=== PATIENT | female | born 1965 | race Caucasian/White ===

== ENCOUNTER 2018-08-01 18:30 | Inpatient (IN) | payer SELFPAY ==
[~2018-08-01] VITALS: Ht 162.6 cm; Wt 59.9 kg
[2018-08-01 18:35] VITALS: BP 139/81
--- NOTE | 2018-08-01 18:56 | NUR ---
Pt present to ed due to lt sided substernal cp x last noc;Pt states pain radiates to her jaw , lt arm and back;Denies n/v. Denies SOB. Pain is aggravated by lying down. Hx of HTN and DM. AAO x 4; All monitors in placed;Safety measures instituted;Needs attended. Er Md will be notified.
[2018-08-01] MEDS ORDERED: ASPIRIN 325 MG TAB PO ONE (19:15)
[2018-08-01] MEDS ORDERED: NITROGLYCERIN 0.4 MG TAB SL ONE (19:15)
--- NOTE | 2018-08-01 19:15 | NUR ---
RECEIVED REPORT FROM AM NURSE. PT LAYING IN BED, DAUGHTER AT BEDSIDE. REPORTS INTERMITTENT CP 09/06. ALL NEEDS MET AT THIS TIME.
[2018-08-01 19:36] LABS: BASOPHILS # (AUTO) 0.1 K/uL (0.00-0.22); BASOPHILS % (AUTO) 0.5 % (0.0-2.0); EOSINOPHILS # (AUTO) 0.7 K/uL (0-0.4); EOSINOPHILS % (AUTO) 5.9 % (0.0-4.0); HEMATOCRIT 36.3 % (36-48); HEMOGLOBIN 11.5 g/dL (12.0-16.0); LYMPHOCYTES # (AUTO) 2.5 K/uL (2.5-16.5); LYMPHOCYTES % (AUTO) 20.3 % (20.5-51.1); MEAN CORPUSCULAR HEMOGLOBIN 25 pg (27-31); MEAN CORPUSCULAR HGB CONC 32 g/dL (33-37); MEAN CORPUSCULAR VOLUME 77.4 fL (80-94); MONOCYTES # (AUTO) 0.7 K/uL (0.8-1.0); MONOCYTES % (AUTO) 5.6 % (1.7-9.3); NEUTROPHILS # (AUTO) 8.3 K/uL (1.8-7.7); NEUTROPHILS % (AUTO) 67.7 % (42.2-75.2); PLATELET COUNT (AUTO) 404 K/uL (140-450); RED BLOOD CELL COUNT(AUTO) 4.68 MIL/uL (4.20-5.40); RED CELL DISTRIBUTION WIDTH 13.3 % (11.6-13.7); WHITE BLOOD COUNT (AUTO) 12.3 K/uL (4.8-10.8)
[2018-08-01 19:43] LABS: ANION GAP 14.4 (8-16); CARBON DIOXIDE 29.9 mmol/L (21-32); CREATININE 0.9 mg/dL (0.6-1.3); POTASSIUM 4.3 mmol/L (3.5-5.1)
[2018-08-01 19:48] LABS: ALBUMIN 4.4 g/dL (3.4-5.0); TOTAL BILIRUBIN 0.4 mg/dL (0.0-1.0)
[2018-08-01 20:10] LABS: CREATINE KINASE MB 0.3 ng/mL (0-3.6)
--- NOTE | 2018-08-01 20:15 | NUR ---
PT LAYING IN BED, DAUGHTER AT BEDSIDE. PT REPORTS NO CHEST PAIN AT THIS TIME. RR EVEN AND UNLABORED. ALL NEEDS MET.
--- NOTE | 2018-08-01 20:16 | NUR ---
ER MD AT BEDSIDE TO SPEAK WITH PT, PT'S DAUGHTER, AND DAUGHTER'S THROUGH PHONE
--- NOTE | 2018-08-01 20:40 | NUR ---
Patient will be admitted to care of DR. LAY. Admited to TELE. Will go to room 120B. Belongings list completed. Report to MER IRENE
--- NOTE | 2018-08-01 20:50 | NUR ---
ADMITTED A 53 F FROM ER .CAME BY KRISTIAN. AWAKE,ALERT AND ORIENTED X4. ON TELE -SR. SPEAKS CHURCH. BUT DAUGHTER WITH PATIENTS TO HELP TRANSLATE FOR MOM. PT IS AMBULATORY. WITH SKIN INTACT. CAME WITH CHEST PAIN BUT AT THIS TIME DENIES ANY DISCOMFORT/PAIN . HAS HL ON THE RT AC#20. CLEAR AND PATENT. ,RESIDENT MD CAME WITH PT FROM ER. PLAN OF CARE DISCUSSED WITH PT/DAUGHTER. VERBALIZED UNDERSTANDING. ORIENTED TO HOSPITAL ROUTINES. BED PLACE IN LOWEST POSITION. CALL LIGHT WITHIN EASY REACH. INSTRUCTED THE USE OF PHONE. WILL FOLLOW UP ADMIT ORDERS AND WILL CONTINUE TO MONITOR.
[2018-08-01] MEDS ORDERED: HYDROcodone/APAP 7.5/325 MG 1 TAB PO PRN (20:55)
[2018-08-01] MEDS ORDERED: DEXTROSE 50% 50 ML SYR IVP PRN (20:55)
[2018-08-01] MEDS ORDERED: ACETAMINOPHEN 325 MG TAB PO PRN (20:55)
[2018-08-01] MEDS ORDERED: ONDANSETRON 4 MG/2 ML VIAL IVP PRN (20:55)
[2018-08-01 20:59] VITALS: BP 155/93
[2018-08-01] MEDS ORDERED: METF500T PO (21:37)
[2018-08-01 21:45] LABS: APPEARANCE,URINE CLEAR (CLEAR); BILIRUBIN,URINE NEGATIVE (NEGATIVE); BLOOD, URINE NEGATIVE (NEGATIVE); LEUKOCYTE ESTERASE ,URINE NEGATIVE (NEGATIVE); NITRITE, URINE NEGATIVE (NEGATIVE); PH,URINE 7.5 (5.0-9.0); UGLUCOSE NEGATIVE (NEGATIVE)
[2018-08-01 21:46] LABS: COLOR,URINE STRAW (YELLOW)
[2018-08-01 21:51] LABS: BARBITURATE, URINE NEG. ng/ml (NEG <=200); BENZODIAZEPINE, URINE NEG. ng/mL (NEG <=200); CANNABINOID, URINE NEG. ng/mL (NEG <=50); COCAINE, URINE NEG. ng/mL (NEG <=300); OPIATE, URINE NEG. ng/mL (NEG <=2000); PHENCYCLIDINE SCREEN,URINE NEG. ng/mL (NEG <=25)
[2018-08-01] MEDS: NACL 0.9% 1,000 ML IV SCH (21:54)
[2018-08-01] MEDS: BLOOD GLUCOSE MONITORING 1 DEV DEV FS SCH (21:55)
[2018-08-01] MEDS ORDERED: DOCUSATE SODIUM 100 MG GELCAP PO SCH (22:00)
[2018-08-01] MEDS ORDERED: METOPROLOL 25 MG TAB PO SCH (22:00)
[2018-08-01] MEDS: INSULIN LISPRO SLIDING SCALE 100 UNITS/ML VIAL SUBQ PRN (22:01)
--- NOTE | 2018-08-01 22:01 | NUR ---
BLOOD SUGAR WAS CHECKED RESULT 203. INSULIN COVERAGE GIVEN ORDERED. PT IS EATING FOOD FROM HOME.
[2018-08-01 22:03] LABS: MAGNESIUM 2.3 mg/dL (1.8-2.4); PHOSPHORUS 4.6 mg/dL (2.5-4.9); THYROID STIMULATING HORMONE 6.17 uIU/mL (0.34-3.74)
[2018-08-01] MEDS ORDERED: INFLUENZA VIRUS VACCINE QUAD 0.5 ML SYR IMVAC PRN (22:45)
[2018-08-01] MEDS ORDERED: PNEUMOCOCCAL VACCINE 23 MCG/0.5 ML VIAL IMVAC SCH (22:45)
--- NOTE | 2018-08-01 23:00 | NUR ---
SCD MACHINE APPLIED TO BOTH LOWER LEGS. MADE AWARE OF THE BENEFITS FROM THE MACHINE.
[2018-08-02 00:30] VITALS: BP 120/63
--- NOTE | 2018-08-02 00:50 | NUR ---
ASSISTED UP TO THE BATHROOM. AMBULATE WELL WITH NO PROBLEM.
--- NOTE | 2018-08-02 02:30 | NUR ---
PT STILL AWAKE, FEELING COLD . PROVIDED WITH SOME WARM BLANKETS.
[2018-08-02 04:02] VITALS: BP 111/73
--- NOTE | 2018-08-02 04:30 | NUR ---
PT IS ASLEEP. NO S/S OF DISCOMFORT NOTED.
[2018-08-02] MEDS: BLOOD GLUCOSE MONITORING 1 DEV DEV FS SCH ×4 (06:05→20:29)
[2018-08-02] MEDS: INSULIN LISPRO SLIDING SCALE 100 UNITS/ML VIAL SUBQ PRN ×4 (06:07→20:36)
--- NOTE | 2018-08-02 06:07 | NUR ---
BLOOD SUGAR THIS AM 153. PT GIVEN 2 UNITS HUMALOG SUB Q COVERAGE . PROVIDED SOME CRACKERS.
--- NOTE | 2018-08-02 06:16 | NUR ---
PATIENT HAS BEEN SCREENED AND CATEGORIZED MODERATE NUTRITION RISK. PATIENT WILL BE SEEN WITHIN 3-5 DAYS OF ADMISSION. 08/03/18-08/05/18 TASHIA LANDA MS, RDN
[2018-08-02 06:54] LABS: BASOPHILS % (AUTO) 0.3 % (0.0-2.0); EOSINOPHILS # (AUTO) 0.7 K/uL (0-0.4); EOSINOPHILS % (AUTO) 6.3 % (0.0-4.0); HEMATOCRIT 34.3 % (36-48); HEMOGLOBIN 10.8 g/dL (12.0-16.0); LYMPHOCYTES # (AUTO) 2.8 K/uL (2.5-16.5); LYMPHOCYTES % (AUTO) 24.9 % (20.5-51.1); MEAN CORPUSCULAR HEMOGLOBIN 25 pg (27-31); MEAN CORPUSCULAR HGB CONC 32 g/dL (33-37); MEAN CORPUSCULAR VOLUME 77.7 fL (80-94); MONOCYTES # (AUTO) 0.7 K/uL (0.8-1.0); MONOCYTES % (AUTO) 6.2 % (1.7-9.3); NEUTROPHILS # (AUTO) 7.1 K/uL (1.8-7.7); NEUTROPHILS % (AUTO) 62.3 % (42.2-75.2); PLATELET COUNT (AUTO) 389 K/uL (140-450); RED BLOOD CELL COUNT(AUTO) 4.42 MIL/uL (4.20-5.40); RED CELL DISTRIBUTION WIDTH 13.7 % (11.6-13.7); WHITE BLOOD COUNT (AUTO) 11.4 K/uL (4.8-10.8)
--- NOTE | 2018-08-02 07:25 | NUR ---
ENDORSED PT IN STABLE CONDITION TO AM NURSE.
--- NOTE | 2018-08-02 07:25 | NUR ---
RECEIVED REPORT FROM PRESS WORKER HELPER RN. PT IS AWAKE, ALERT AND ORIENTED X4. ON TELE -SR. SPEAKS YARSANI BUT DAUGHTER IS WITH PATIENT TO HELP TRANSLATE. PT IS AMBULATORY. WITH SKIN INTACT. CAME WITH CHEST PAIN BUT AT THIS TIME DENIES ANY DISCOMFORT/PAIN . HAS HL ON THE RT AC#20. CLEAR AND PATENT. PLAN OF CARE DISCUSSED WITH PT/DAUGHTER. VERBALIZED UNDERSTANDING. ORIENTED TO HOSPITAL ROUTINES. BED PLACE IN LOWEST POSITION. CALL LIGHT WITHIN EASY REACH. INSTRUCTED THE USE OF PHONE. WILL FOLLOW UP ADMIT ORDERS AND WILL CONTINUE TO MONITOR.
[2018-08-02 07:30] LABS: ANION GAP 10.6 (8-16); CARBON DIOXIDE 31.3 mmol/L (21-32); CREATININE 0.7 mg/dL (0.6-1.3); POTASSIUM 3.9 mmol/L (3.5-5.1)
[2018-08-02 07:31] LABS: CHOL/HDL RATIO 4.4 (1-4.5); MAGNESIUM 2.1 mg/dL (1.8-2.4); PHOSPHORUS 4.6 mg/dL (2.5-4.9)
[2018-08-02 08:00] VITALS: BP 114/73
[2018-08-02] MEDS ORDERED: metFORMIN 500 MG TAB PO SCH (08:00)
[2018-08-02] MEDS: DOCUSATE SODIUM 100 MG GELCAP PO SCH ×2 (08:48→20:31)
[2018-08-02] MEDS: LISINOPRIL 5 MG TAB PO SCH (08:48)
[2018-08-02] MEDS: METOPROLOL 25 MG TAB PO SCH ×2 (08:48→20:31)
[2018-08-02] MEDS: FAMOTIDINE 20 MG TAB PO SCH (08:49)
[2018-08-02] MEDS: ATORVASTATIN 20 MG TAB PO SCH (08:49)
[2018-08-02] MEDS ORDERED: ECOTRIN 81 MG TABEC PO SCH (09:00)
[2018-08-02] MEDS ORDERED: FERROUS SULFATE 325 MG TABEC PO SCH (09:22)
--- NOTE | 2018-08-02 09:50 | NUR ---
PT RESTING IN BED TALKING TO DAUGHTER. PT AWAITING CONSULT WITH DR. CUMMINGS FOR CLEARANCE AND DC. WILL NOTIFY PT OF DR. LANCE
[2018-08-02 12:00] VITALS: BP 113/72
--- NOTE | 2018-08-02 12:03 | NUR ---
PT IS ASLEEP. NO S/S OF DISCOMFORT NOTED. WILL ROUND FREQUENTLY. CALL LIGHT WITHIN REACH. BED IN LOW POSITION.
--- NOTE | 2018-08-02 14:26 | NUR ---
PT IS AMBULATING HALLS WITH DAUGHTER. PT TOLERATING WELL. NO SIGNS OF DISTRESS OR SOB NOTED. NO COMPLAINT OF CHEST PAIN. WILL ROUND FREQUENTLY.
[2018-08-02 16:00] VITALS: BP 116/70
[2018-08-02] MEDS ORDERED: CLOP75TA26 PO ×2 (16:49→17:08)
[2018-08-02] MEDS ORDERED: AMLO5TAB PO (16:49)
[2018-08-02] MEDS ORDERED: METF500T PO ×2 (16:53→17:08)
[2018-08-02] MEDS ORDERED: TELM80TA1 PO ×2 (16:55→17:08)
[2018-08-02] MEDS ORDERED: CHLO25TA33 PO ×2 (16:58→17:08)
[2018-08-02] MEDS: NACL 0.9% 1,000 ML IV SCH (17:43)
--- NOTE | 2018-08-02 19:11 | NUR ---
RECEIVED REPORT FROM DAY SHIFT FROM DAY SHIFT NURSE, JER AT PT BEDSIDE. PT DAUGHTER IS AT BEDSIDE. PT IS AA0X4. PT IS ON RA WITH RESPIRATIONS EVEN AND UNLABORED. IV ACCESS IN R AC 20G WITH IVF RUNNING PER MD ORDERS. IV IS PATENT AND INTACT. PT SKIN IS INTACT. PT HAS NO C/O PAIN AT THIS TIME. BED IS LOCKED, LOW POSITION WITH SIDE RAILS UP X2. CALL LIGHT IS WITHIN REACH. BOARD UPDATED. WILL CONTINUE TO MONITOR.
--- NOTE | 2018-08-02 19:56 | NUR ---
ENDORSED PT TO [facility] ASS[facility] SPECIALIST YOLANDA CONTINUITY OF CARE. PT IN STABLE CONDITION.
[2018-08-02 20:00] VITALS: BP 109/68
--- NOTE | 2018-08-02 20:36 | NUR ---
SCHEDULED MEDICATIONS ADMINISTERED. INSULIN COVERAGE GIVEN FOR BS, 318 PER MD ORDERS. PT TOLERATED WELL. ALL OTHER NEEDS ARE MET AT THIS TIME. NO SIGNS OR SYMPTOMS OF DISTRESS. WILL CONTINUE TO MONITOR.
--- NOTE | 2018-08-02 23:02 | NUR ---
PT ASLEEP IN BED. PT HAS NO S/S OF DISTRESS. WILL CONTINUE TO MONITOR.
[2018-08-03] VITALS: BP 93/55
--- NOTE | 2018-08-03 02:06 | NUR ---
NO CHANGE IN CONDITION. PT HAS NO S/S OF DISTRESS. WILL CONTINUE TO MONITOR.
[2018-08-03 04:00] VITALS: BP 108/68
[2018-08-03] MEDS: BLOOD GLUCOSE MONITORING 1 DEV DEV FS SCH ×2 (05:09→12:14)
[2018-08-03] MEDS: INSULIN LISPRO SLIDING SCALE 100 UNITS/ML VIAL SUBQ PRN (05:51)
--- NOTE | 2018-08-03 05:52 | NUR ---
INSULIN COVERAGE GIVEN FOR BS 153 PER MD ORDERS. PT TOLERATED WELL. NO S/S OF DISTRESS. WILL CONTINUE TO MONITOR.
[2018-08-03 07:13] LABS: BASOPHILS % (AUTO) 0.5 % (0.0-2.0); EOSINOPHILS # (AUTO) 0.6 K/uL (0-0.4); EOSINOPHILS % (AUTO) 5.6 % (0.0-4.0); HEMATOCRIT 32.1 % (36-48); LYMPHOCYTES # (AUTO) 3.3 K/uL (2.5-16.5); LYMPHOCYTES % (AUTO) 31.2 % (20.5-51.1); MEAN CORPUSCULAR HEMOGLOBIN 25 pg (27-31); MEAN CORPUSCULAR HGB CONC 31 g/dL (33-37); MEAN CORPUSCULAR VOLUME 78.7 fL (80-94); MONOCYTES # (AUTO) 0.7 K/uL (0.8-1.0); MONOCYTES % (AUTO) 6.5 % (1.7-9.3); NEUTROPHILS % (AUTO) 56.2 % (42.2-75.2); PLATELET COUNT (AUTO) 324 K/uL (140-450); RED BLOOD CELL COUNT(AUTO) 4.09 MIL/uL (4.20-5.40); RED CELL DISTRIBUTION WIDTH 13.3 % (11.6-13.7); WHITE BLOOD COUNT (AUTO) 10.7 K/uL (4.8-10.8)
--- NOTE | 2018-08-03 07:13 | NUR ---
ENDORSED PT TO DAY SHIFT NURSE FOR CONTINUITY OF CARE. PT IN STABLE CONDITION.
--- NOTE | 2018-08-03 07:14 | NUR ---
Received report from pm nurse Kimberley. Pt awake, respirations even & nonlabored in room air, FLACC 0. Daughter at bedside. Call light within reach.
[2018-08-03 07:31] LABS: ANION GAP 10.8 (8-16); CARBON DIOXIDE 29.4 mmol/L (21-32); CREATININE 0.8 mg/dL (0.6-1.3); POTASSIUM 4.2 mmol/L (3.5-5.1)
[2018-08-03 08:00] VITALS: BP 126/73
[2018-08-03] MEDS: metFORMIN 500 MG TAB PO SCH ×2 (08:39→12:25)
[2018-08-03] MEDS: DOCUSATE SODIUM 100 MG GELCAP PO SCH (08:39)
[2018-08-03] MEDS: LISINOPRIL 5 MG TAB PO SCH (08:39)
[2018-08-03] MEDS: ATORVASTATIN 20 MG TAB PO SCH (08:39)
[2018-08-03] MEDS: FAMOTIDINE 20 MG TAB PO SCH (08:40)
[2018-08-03] MEDS: METOPROLOL 25 MG TAB PO SCH (08:40)
[2018-08-03] MEDS ORDERED: FERROUS SULFATE 325 MG TABEC PO SCH (09:00)
[2018-08-03] MEDS ORDERED: metFORMIN 500 MG TAB PO SCH (09:00)
[2018-08-03 09:06] LABS: TRANSFERRIN 267 mg/dL (200-370)
--- NOTE | 2018-08-03 11:10 | NUR ---
Pt pacing in room, daughter at bedside. Pt denies any discomfort, respirations even & nonlabored in room air, FLACC 0.
[2018-08-03 12:00] VITALS: BP 145/85
--- NOTE | 2018-08-03 12:06 | NUR ---
CM NOTE RECEIVED CALL FROM DR. Branden CUMMINGS REQUESTING ASSISTANCE WITH PATIENT'S INSURANCE COVERAGE. CURRENTLY PATIENT IS A SELF PAY AND IS HERE VISITING FROM [facility]. INFORMED ADMITTING DEPT REGARDING DR. CUMMINGS'S REQUEST. DIRECTOR OF ADMITTING DEPT SALTY SPOKE WITH PATIENT AND PATIENT'S DAUGHTER AND SON IN LAW. PER SALTY, PATIENT STATED THAT SHE WANTS TO GO BACK TO [facility] AND SEEK MEDICAL CARE THERE AND THAT HER DAUGHTER AND SON IN LAW ARE BOOKING HER A FLIGHT BACK TO [facility] FOR TOMORROW. SALTY ALSO STATED THAT PATIENT'S SON IN LAW IS CALLING DR. CUMMINGS TODAY TO INFORM HIM OF PATIENT'S CHOICE TO GO BACK HOME TO [facility] AND SEEK MEDICAL CARE THERE. DR. BABIN/JAYY MADE AWARE.
[2018-08-03] MEDS ORDERED: GLIM1TAB6 PO (12:20)
[2018-08-03] MEDS ORDERED: [UNRECOGNIZED DRUG - OTHER] PO (12:23)
[2018-08-03] MEDS ORDERED: [UNRECOGNIZED DRUG - OTHER] (12:23)
[2018-08-03] MEDS ORDERED: METO25TA PO (12:26)
[2018-08-03] MEDS ORDERED: ATOR20TA40 PO (12:26)
[2018-08-03] MEDS ORDERED: CLOP75TA26 PO (12:26)
[2018-08-03] MEDS ORDERED: AMLO5TAB4 PO (12:26)
[2018-08-03] MEDS ORDERED: ASPI-1440 PO (12:27)
[2018-08-03] MEDS ORDERED: LISI5TAB18 PO (13:19)
[2018-08-03] MEDS ORDERED: FERR325E14 PO (13:32)
[2018-08-03] MEDS ORDERED: ASCO500T45 PO (14:07)
--- NOTE | 2018-08-03 15:00 | NUR ---
Written & verbal discharge instructions provided to pt, daughter Daytonjulienkeo at bedside to translate to [employer]. Both verbalized understanding of & agree with discharge plans. Discharge paper signed by daughter per pt request.
--- NOTE | 2018-08-03 15:30 | NUR ---
Pt discharged at this time to home. All belongings with pt. Name band removed. Pt stable, [id number], no c/o discomfort upon departure. Amb off unit with steady gait, accompanied by daughter Cynthia.
[2018-08-03] MEDS ORDERED: amLODIPine 5 MG TAB PO SCH (17:00)
[2018-08-03] MEDS ORDERED: CLOPIDOGREL 75 MG TAB PO SCH (17:00)
[2018-08-04 06:16] LABS: FERRITIN 33 ng/mL (15-150); FOLIC ACID > 20.00 ng/mL (>3.0)
== END 2018-08-03 15:30 | disposition home or self-care (01) | DRG 311 ==
LOC: MED 18:30 → MTU 20:29
PROVIDERS: ADMIT General Practice; ATTEND General Practice
DX: I24.9 Acute ischemic heart disease, unspecified (principal); I10 Essential (primary) hypertension; D50.9 Iron deficiency anemia, unspecified; D72.829 Elevated white blood cell count, unspecified; E78.5 Hyperlipidemia, unspecified; I25.10 Atherosclerotic heart disease of native coronary artery without angina pectoris; E11.65 Type 2 diabetes mellitus with hyperglycemia; E02 Subclinical iodine-deficiency hypothyroidism; Z79.84 Long term (current) use of oral hypoglycemic drugs; Z90.710 Acquired absence of both cervix and uterus
CPT/HCPCS: 36415; 71045; 80048; 80053; 80305; 81003; 82550; 82553; 82607; 82728; 82746; 82948; 83036; 83540; 83690; 83735; 83880; 84100; 84443; 84484; 85025; 85045; 85610; 85730; 87081; 90658; 90732; 93005; 93017; 99285; J1815; J7030; Q0092

== ENCOUNTER 2018-08-11 14:30 | Inpatient (IN) | payer SELFPAY ==
[~2018-08-11] VITALS: Ht 160 cm; Wt 59.4 kg
[~2018-08-11 14:30] MED LIST: AMLO5TAB4 PO; ASCO500T45 PO; ASPI-1440 PO; ATOR20TA40 PO; CLOP75TA26 PO; FERR325E14 PO; GLIM1TAB6 PO; LISI5TAB18 PO; METF500T PO; METO25TA PO; [UNRECOGNIZED DRUG - OTHER] PO
[2018-08-11 14:31] VITALS: BP 148/93
[2018-08-11] MEDS ORDERED: KETOROLAC 30 MG/ML VIAL IVP ONE (14:50)
[2018-08-11] MEDS ORDERED: LORazepam 2 MG/ML VIAL IVP ONE (14:50)
[2018-08-11 15:11] LABS: BASOPHILS % (AUTO) 0.3 % (0.0-2.0); EOSINOPHILS # (AUTO) 0.1 K/uL (0-0.4); EOSINOPHILS % (AUTO) 0.6 % (0.0-4.0); HEMATOCRIT 34.1 % (36-48); LYMPHOCYTES # (AUTO) 2.1 K/uL (2.5-16.5); LYMPHOCYTES % (AUTO) 13.4 % (20.5-51.1); MEAN CORPUSCULAR HEMOGLOBIN 24 pg (27-31); MEAN CORPUSCULAR HGB CONC 32 g/dL (33-37); MONOCYTES # (AUTO) 0.7 K/uL (0.8-1.0); MONOCYTES % (AUTO) 4.4 % (1.7-9.3); NEUTROPHILS # (AUTO) 12.5 K/uL (1.8-7.7); NEUTROPHILS % (AUTO) 81.3 % (42.2-75.2); PLATELET COUNT (AUTO) 412 K/uL (140-450); RED BLOOD CELL COUNT(AUTO) 4.54 MIL/uL (4.20-5.40); RED CELL DISTRIBUTION WIDTH 13.3 % (11.6-13.7); WHITE BLOOD COUNT (AUTO) 15.4 K/uL (4.8-10.8)
[2018-08-11 15:24] LABS: ALBUMIN 4.3 g/dL (3.4-5.0); ANION GAP 15.4 (8-16); CARBON DIOXIDE 26.1 mmol/L (21-32); CREATININE 0.7 mg/dL (0.6-1.3); POTASSIUM 3.5 mmol/L (3.5-5.1); TOTAL BILIRUBIN 0.7 mg/dL (0.0-1.0)
[2018-08-11 15:25] LABS: PROTHROMBIN TIME 10.8 secs (10.8-13.4)
[2018-08-11] MEDS ORDERED: HYDROcodone/APAP 7.5/325 MG 1 TAB PO PRN (15:40)
[2018-08-11] MEDS ORDERED: ACETAMINOPHEN 325 MG TAB PO PRN (15:40)
[2018-08-11] MEDS ORDERED: ONDANSETRON 4 MG/2 ML VIAL IVP PRN (15:40)
[2018-08-11] MEDS ORDERED: NACL 0.9% 500 ML IV ONE (15:50)
[2018-08-11] MEDS: NACL 0.9% 1,000 ML IV SCH (15:50)
[2018-08-11] MEDS ORDERED: DEXTROSE 50% 50 ML SYR IVP PRN (16:35)
[2018-08-11] MEDS ORDERED: INSULIN LISPRO SLIDING SCALE 100 UNITS/ML VIAL SUBQ PRN (16:35)
[2018-08-11] MEDS ORDERED: SODIUM CHLORIDE 1 GM TAB PO SCH (17:00)
[2018-08-11] MEDS ORDERED: DICYCLOMINE HCL LIQUID 10 MG/5 ML UDC PO SCH (17:30)
[2018-08-11] MEDS ORDERED: metFORMIN 500 MG TAB PO SCH ×2 (17:30→17:45)
[2018-08-11] MEDS ORDERED: LIDOCAINE VISCOUS 2% 20 ML UDC PO SCH (17:30)
[2018-08-11] MEDS ORDERED: ALUMINUM HYD/MAG/SIMETHICONE 30 ML UDC PO SCH (17:30)
[2018-08-11] MEDS: amLODIPine 5 MG TAB PO SCH (17:53)
[2018-08-11] MEDS ORDERED: PANTOPRAZOLE 40 MG TABEC PO SCH (19:30)
[2018-08-11 20:00] VITALS: BP 129/72
[2018-08-11 20:58] LABS: CARBON DIOXIDE 28.6 mmol/L (21-32); CREATININE 0.6 mg/dL (0.6-1.3); POTASSIUM 3.6 mmol/L (3.5-5.1)
[2018-08-11] MEDS: DOCUSATE SODIUM 100 MG GELCAP PO SCH (20:58)
[2018-08-11] MEDS: METOPROLOL 25 MG TAB PO SCH (20:59)
[2018-08-11] MEDS: BLOOD GLUCOSE MONITORING 1 DEV DEV FS SCH (21:00)
[2018-08-11 22:07] LABS: BARBITURATE, URINE NEG. ng/ml (NEG <=200); BENZODIAZEPINE, URINE NEG. ng/mL (NEG <=200); CANNABINOID, URINE NEG. ng/mL (NEG <=50); COCAINE, URINE NEG. ng/mL (NEG <=300); OPIATE, URINE NEG. ng/mL (NEG <=2000); PHENCYCLIDINE SCREEN,URINE NEG. ng/mL (NEG <=25)
[2018-08-11 22:09] LABS: APPEARANCE,URINE CLEAR (CLEAR); BILIRUBIN,URINE NEGATIVE (NEGATIVE); BLOOD, URINE NEGATIVE (NEGATIVE); COLOR,URINE STRAW (YELLOW); LEUKOCYTE ESTERASE ,URINE 1+ (NEGATIVE); NITRITE, URINE NEGATIVE (NEGATIVE); PH,URINE 6.5 (5.0-9.0); UGLUCOSE TRACE (NEGATIVE)
[2018-08-11 22:19] LABS: FREE T4 (FREE THYROXINE) 1.42 ng/dL (0.76-1.46); MAGNESIUM 1.7 mg/dL (1.8-2.4); PHOSPHORUS 3.6 mg/dL (2.5-4.9); THYROID STIMULATING HORMONE 3.78 uIU/mL (0.34-3.74)
[2018-08-11 22:41] LABS: RBC,URINE 0-5 (RARE) /HPF (0-5)
[2018-08-12] VITALS: BP 130/73
[2018-08-12 00:43] LABS: ANION GAP 11.9 (8-16); CARBON DIOXIDE 26.9 mmol/L (21-32); CREATININE 0.6 mg/dL (0.6-1.3); POTASSIUM 3.8 mmol/L (3.5-5.1)
[2018-08-12] MEDS: guaiFENesin 20 MG/ML UDC PO PRN ×3 (01:11→12:39)
[2018-08-12 04:00] VITALS: BP 90/60
[2018-08-12 05:44] LABS: BASOPHILS % (AUTO) 0.2 % (0.0-2.0); EOSINOPHILS # (AUTO) 0.3 K/uL (0-0.4); HEMATOCRIT 29.6 % (36-48); HEMOGLOBIN 9.6 g/dL (12.0-16.0); LYMPHOCYTES # (AUTO) 3.4 K/uL (2.5-16.5); LYMPHOCYTES % (AUTO) 26.1 % (20.5-51.1); MEAN CORPUSCULAR HEMOGLOBIN 25 pg (27-31); MEAN CORPUSCULAR HGB CONC 33 g/dL (33-37); MEAN CORPUSCULAR VOLUME 75.8 fL (80-94); MONOCYTES # (AUTO) 0.8 K/uL (0.8-1.0); MONOCYTES % (AUTO) 6.2 % (1.7-9.3); NEUTROPHILS # (AUTO) 8.5 K/uL (1.8-7.7); NEUTROPHILS % (AUTO) 65.5 % (42.2-75.2); PLATELET COUNT (AUTO) 340 K/uL (140-450); RED CELL DISTRIBUTION WIDTH 13.3 % (11.6-13.7)
[2018-08-12 06:29] LABS: ANION GAP 11.2 (8-16); CARBON DIOXIDE 27.4 mmol/L (21-32); CREATININE 0.7 mg/dL (0.6-1.3); POTASSIUM 3.6 mmol/L (3.5-5.1)
[2018-08-12] MEDS ORDERED: PANTOPRAZOLE 40 MG TABEC PO SCH (06:30)
[2018-08-12 06:35] LABS: CHOL/HDL RATIO 1.9 (1-4.5)
[2018-08-12 06:36] LABS: MAGNESIUM 1.8 mg/dL (1.8-2.4); PHOSPHORUS 3.9 mg/dL (2.5-4.9)
[2018-08-12] MEDS: NACL 0.9% 1,000 ML IV SCH (06:39)
[2018-08-12] MEDS: BLOOD GLUCOSE MONITORING 1 DEV DEV FS SCH ×3 (07:01→16:34)
[2018-08-12 08:00] VITALS: BP 99/61
[2018-08-12] MEDS ORDERED: NACL 0.9% 1,000 ML IV SCH (08:05)
[2018-08-12] MEDS: GLIMEPIRIDE 2 MG TAB PO SCH ×2 (08:48→16:33)
[2018-08-12] MEDS: metFORMIN 500 MG TAB PO SCH ×3 (08:48→16:32)
[2018-08-12] MEDS: DOCUSATE SODIUM 100 MG GELCAP PO SCH (08:53)
[2018-08-12] MEDS: METOPROLOL 25 MG TAB PO SCH (08:53)
[2018-08-12] MEDS ORDERED: LISINOPRIL 5 MG TAB PO SCH (09:00)
[2018-08-12] MEDS ORDERED: LACTOBACILLUS RHAMNOSUS GG 1 EACH CAP PO SCH (09:00)
[2018-08-12] MEDS ORDERED: ASCORBIC ACID 500 MG TAB PO SCH (09:00)
[2018-08-12] MEDS ORDERED: FERROUS SULFATE 325 MG TABEC PO SCH (09:00)
[2018-08-12] MEDS ORDERED: ECOTRIN 81 MG TABEC PO SCH (09:00)
[2018-08-12 12:00] VITALS: BP 102/53
[2018-08-12 13:15] LABS: ANION GAP 12.1 (8-16); CARBON DIOXIDE 28.2 mmol/L (21-32); POTASSIUM 4.3 mmol/L (3.5-5.1)
[2018-08-12 13:16] LABS: CREATININE 0.8 mg/dL (0.6-1.3)
[2018-08-12] MEDS ORDERED: PANT40EC28 PO (13:47)
[2018-08-12] MEDS ORDERED: LORA-476 PO (13:47)
[2018-08-12] MEDS ORDERED: ROB PO (13:47)
[2018-08-12] MEDS ORDERED: BENZ-196 PO (14:04)
[2018-08-12] MEDS ORDERED: ALUMINUM HYD/MAG/SIMETHICONE 30 ML UDC PO SCH (14:15)
[2018-08-12] MEDS ORDERED: DICYCLOMINE HCL LIQUID 10 MG/5 ML UDC PO SCH (14:15)
[2018-08-12] MEDS ORDERED: LIDOCAINE VISCOUS 2% 20 ML UDC PO SCH (14:15)
[2018-08-12 16:00] VITALS: BP 103/66
[2018-08-12] MEDS: amLODIPine 5 MG TAB PO SCH (16:54)
[2018-08-12] MEDS ORDERED: ATORVASTATIN 20 MG TAB PO SCH (21:00)
== END 2018-08-12 17:40 | disposition home or self-care (01) | DRG 391 ==
LOC: MED 14:30 → MMU 15:39
PROVIDERS: ADMIT General Practice; ATTEND General Practice
DX: K21.9 Gastro-esophageal reflux disease without esophagitis (principal); G93.41 Metabolic encephalopathy; E87.1 Hypo-osmolality and hyponatremia; N39.0 Urinary tract infection, site not specified; I10 Essential (primary) hypertension; E11.65 Type 2 diabetes mellitus with hyperglycemia; F41.9 Anxiety disorder, unspecified; D72.829 Elevated white blood cell count, unspecified; J06.9 Acute upper respiratory infection, unspecified; Z79.02 Long term (current) use of antithrombotics/antiplatelets; Z79.84 Long term (current) use of oral hypoglycemic drugs; Z79.899 Other long term (current) drug therapy
CPT/HCPCS: 36415; 71045; 80048; 80053; 80305; 81001; 82150; 82948; 83036; 83690; 83735; 83880; 83930; 83935; 84100; 84300; 84439; 84443; 84484; 85025; 85610; 85730; 87081; 87086; 87804; 93005; 96361; 96374; 96375; 99285; J0696; J1815; J1885; J2060; J7030; J7060; Q0092